=== PATIENT | male | born 1945 | race Caucasian/White ===

== ENCOUNTER 2017-07-27 05:34 | Outpatient (CLI) | payer MEDICARE ==
[~2017-07-27] VITALS: Ht 180.3 cm; Wt 65.8 kg
[~2017-07-27 05:34] MED LIST: ASPI325T4
[2017-07-27] MEDS ORDERED: GLUC100016 PO (12:45)
[2017-07-27] MEDS ORDERED: CALC-722 PO (12:45)
[2017-07-27] MEDS ORDERED: MULT1CAP27 PO (12:45)
== END 2017-07-27 12:49 ==
LOC: PREOP 05:34
PROVIDERS: ATTEND Internal Medicine
DX: Z01.818 Encounter for other preprocedural examination; Z12.11 Encounter for screening for malignant neoplasm of colon

== ENCOUNTER → 2017-10-12 | Outpatient (CLI) | payer MEDICARE ==
[~2017-10-12] MED LIST changes: +CALC-722 PO; +GLUC100016 PO; +MULT1CAP27 PO
--- NOTE | 2017-10-12 12:08 | Diagnostic Imaging Report ---
PA and lateral views of the chest. INDICATION: Cough. FINDINGS: The lungs are hyperinflated with no focal infiltrate. The heart is normal. No effusion or pneumothorax. The mediastinum and roxanna appear unremarkable. IMPRESSION: COPD. Dictated by: Dictated on workstation # [id number]
== END ==
LOC: RAD 11:07
PROVIDERS: ATTEND Internal Medicine
DX: J44.9 Chronic obstructive pulmonary disease, unspecified (principal)
CPT/HCPCS: 71020

== ENCOUNTER → 2019-01-23 | Outpatient (CLI) | payer MEDICARE ==
--- NOTE | 2019-01-23 15:48 | Diagnostic Imaging Report ---
INDICATION: M81.0 COMPARISON: 07/15/2016 FINDINGS: AP Spine L1-L4: [BMD (g/cm2): 0.792] [T-Score: -3.7] [Z-Score: -2.7] [BMD Previous: 0.827] [BMD % Change: -4.2] LT Hip Neck: [BMD (g/cm2): 0.631] [T-Score: -3.4] [Z-Score: -1.7] LT Hip Total: [BMD (g/cm2):0.652] [T-Score:-3.1] [Z-Score: -2.0] [BMD Previous: 0.683] [BMD % Change: N/A] RT Hip Neck: [BMD (g/cm2):0.630] [T-Score:-3.4] [Z-Score:-1.7] RT Hip Total: [BMD (g/cm2):0.655] [T-score:-3.1] [Z-Score:-2.0] [BMD Previous:0.668] [BMD % Change:NA] *Indicates significant change from prior examination based on 95% confidence level. World Health Organization criteria for BMD interpretation classify patients as Normal (T-score at or above -1.0), Osteopenic (T-score between -1.0 and -2.5) or Osteoporotic (T-score at or below -2.5). LIMITATIONS AND MODIFICATION: None. FRACTURE RISK (FRAX SCORE): The ten year probability of (%): Major Osteoporotic Fracture: [11.4] Hip Fracture: [5.7] IMPRESSION: 1. Osteoporosis. 2. No significant change in bone mineral density since prior examination. 3. See below National Osteoporosis Foundation guidelines on when to potentially initiate pharmacologic therapy. Based on the National Osteoporosis Foundation Guidelines, pharmacologic treatment should be initiated in any of the following, unless clinical conditions suggest otherwise: * Any patient with prior fragility fracture of the hip or vertebrae. A spine fracture indicates 5X risk for subsequent spine fracture and 2X risk for subsequent hip fracture. * Osteoporosis (T-score <-2.5). * Postmenopausal women and men age 50 and older with low bone mass/osteopenia (T-score between -1.0 and -2.5) by DXA and 10-year major osteoporotic fracture greater than 20% or a 10-year probability of hip fracture greater than 3%. These fracture risks are supplied above in the FRAX score, if applicable. * Clinician judgement and/or patient preferences may indicate treatment for people with 10-year fracture probabilities above or below these levels. Dictated by: Dictated on workstation # [id number]
== END ==
LOC: RAD 11:37
PROVIDERS: ATTEND Internal Medicine
DX: M81.0 Age-related osteoporosis without current pathological fracture (principal)
CPT/HCPCS: 77080

== ENCOUNTER → 2019-04-12 | Outpatient (CLI) | payer MEDICARE ==
[2019-04-12 17:00] LABS: BILIRUBIN,URINE NEGATIVE (NEGATIVE); CLARITY,URINE CLEAR; COLOR,URINE YELLOW; GLUCOSE, URINE (UA) NEGATIVE (NEGATIVE); KETONES,URINE 1+ (NEGATIVE); LEUKOCYTE ESTERASE ,URINE NEGATIVE (NEGATIVE); NITRITE,URINE NEGATIVE (NEGATIVE); PH,URINE 6.5 (5-9); PROTEIN,URINE 2+ (NEGATIVE); UROBILINOGEN,URINE NORMAL (NORMAL)
[2019-04-12 17:01] LABS: BASOPHILS % (AUTO) 0 % (0-10); EOSINOPHILS # (AUTO) 0.2 10^3/uL (0.0-0.3); EOSINOPHILS % (AUTO) 2 % (0-10); HEMATOCRIT 42 % (40-54); HEMOGLOBIN 14.2 G/DL (13.3-17.7); LYMPHOCYTES # (AUTO) 0.3 X 10^3 (1.0-4.0); LYMPHOCYTES % (AUTO) 3 % (12-44); MEAN CORPUSCULAR HEMOGLOBIN 33 PG (25-34); MEAN CORPUSCULAR HGB CONC 34 G/DL (32-36); MEAN CORPUSCULAR VOLUME 99 FL (80-99); MEAN PLATELET VOLUME 10.5 FL (7.4-10.4); MONOCYTES # (AUTO) 0.7 X 10^3 (0.0-1.0); MONOCYTES % (AUTO) 7 % (0-12); NEUTROPHILS # (AUTO) 8.7 X 10^3 (1.8-7.8); NEUTROPHILS % (AUTO) 89 % (42-75); PLATELET COUNT 127 10^3/uL (130-400); RED CELL DISTRIBUTION WIDTH 13.5 % (10.0-14.5); WHITE BLOOD COUNT 9.9 10^3/uL (4.3-11.0)
[2019-04-12 17:25] LABS: ALBUMIN 4.2 GM/DL (3.2-4.5); CALCIUM 9.9 MG/DL (8.5-10.1); CREATININE SERUM 1.39 MG/DL (0.60-1.30); POTASSIUM 4.4 MMOL/L (3.6-5.0); TOTAL PROTEIN 7.6 GM/DL (6.4-8.2)
[2019-04-12 17:29] LABS: EOSINOPHILS % (MANUAL) 4 %; LYMPHOCYTES % (MANUAL) 2 %; MONOCYTES % (MANUAL) 4 %; NEUTROPHILS % (MANUAL) 90 %; RBC MORPH NORMAL
[2019-04-12 17:34] LABS: BACTERIA,URINE NEGATIVE /HPF
== END ==
LOC: LAB 16:40
PROVIDERS: ATTEND Internal Medicine
DX: R50.9 Fever, unspecified (principal); R21 Rash and other nonspecific skin eruption; M79.10 Myalgia, unspecified site
CPT/HCPCS: 36415; 80053; 81000; 85007; 85027

== ENCOUNTER 2022-08-29 12:19 | Emergency (ER) | payer MEDICARE ==
[~2022-08-29] VITALS: Ht 180 cm; Wt 65.7 kg
--- NOTE | 2022-08-29 13:07 | Diagnostic Imaging Report ---
PELVIS WITH RIGHT HIP 2-3VIEWS INDICATION: Right hip injury, pain COMPARISON: None available. TECHNIQUE: AP pelvis with AP and lateral views of the hip. FINDINGS: No acute fracture. Mild osteoarthritis of the right hip. No displaced fracture within the obturator rings. SI joints are normal alignment. IMPRESSION: No acute fracture about the right hip. Dictated by: Dictated on workstation # [id number]
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
[2022-08-29 14:35] VITALS: BP 148/73
== END 2022-08-29 14:35 | disposition home or self-care (01) ==
LOC: EDUNIT# 12:19 → ER 12:21
DX: S70.01XA Contusion of right hip, initial encounter (principal); V18.9XXA Unspecified pedal cyclist injured in noncollision transport accident in traffic accident, initial encounter; Y92.410 Unspecified street and highway as the place of occurrence of the external cause

== ENCOUNTER → 2022-09-10 | Outpatient (CLI) | payer MEDICARE ==
--- NOTE | 2022-09-10 11:23 | Diagnostic Imaging Report ---
PROCEDURE: CT pelvis without contrast. TECHNIQUE: Multiple contiguous axial images were obtained through the pelvis without the use of intravenous contrast. Sagittal and coronal reformations were performed. Auto Exposure Controls were utilized during the CT exam to meet ALARA standards for radiation dose reduction. INDICATION: Right hip/groin pain. FINDINGS: there is a subtle nondisplaced fracture of the medial right pubic bone best seen on sagittal image 44 series 400. This is nondisplaced. No symphyseal or SI joint diastases. The femoral heads, necks, trochanters and visualized subtrochanteric shafts bilaterally appeared normal, the acetabuli intact. No pelvic intra or extraperitoneal hemorrhage. No appreciable intramuscular hematoma. The urinary bladder is nondisplaced. The pelvic bowel loops unobstructed and nonacute. Sacrococcygeal segments unremarkable. Iliac bones intact. IMPRESSION: Nondisplaced and medial right pubic bone fracture without pelvic hemorrhage, intact hips, no other fracture apparent. Dictated by: Dictated on workstation # [id number]
== END ==
LOC: RAD 08:50
PROVIDERS: ATTEND Nurse Practitioner Family
DX: S32.501A Unspecified fracture of right pubis, initial encounter for closed fracture (principal); X58.XXXA Exposure to other specified factors, initial encounter
CPT/HCPCS: 72192

== ENCOUNTER 2022-10-05 14:30 | Outpatient (RCR) | payer MEDICARE | END 2022-10-06 | disposition home or self-care (01) | PROVIDERS: ATTEND Nurse Practitioner Family | DX: S32.9XXD Fracture of unspecified parts of lumbosacral spine and pelvis, subsequent encounter for fracture with routine healing (principal); M25.551 Pain in right hip; X58.XXXD Exposure to other specified factors, subsequent encounter ==

== ENCOUNTER 2022-10-12 13:45 | Outpatient (RCR) | payer MEDICARE | END 2022-11-06 | disposition home or self-care (01) | PROVIDERS: ATTEND Nurse Practitioner Family | DX: S32.9XXD Fracture of unspecified parts of lumbosacral spine and pelvis, subsequent encounter for fracture with routine healing (principal); X58.XXXD Exposure to other specified factors, subsequent encounter ==